=== PATIENT | male | born 1950 | race Caucasian/White ===

== ENCOUNTER → 2017-11-22 | Outpatient (CLI) | payer MEDICARE, OTHER ==
--- NOTE | 2017-11-22 10:50 | Diagnostic Imaging Report ---
Exam: Brain MRI without IV contrast History: Memory loss Comparison studies: None. Technique: Precontrast: Hi resolution Sag T1 with coronal and axial reformats. Axial DWI, T2, T2 flair, gradient echo or SWI Intravenous contrast: None. Findings: Structural lesions: No intra-or extra-axial masses. No hematomas. Atrophy: General: Symmetric and age appropriate. Focal: No disproportionate lobar, hippocampal, mesencephalic, pontine, or cerebellar atrophy. Lucas matter: Cortex: No signal abnormalities. No encephalomalacia. Basal ganglia: No atrophy or signal abnormalities. Thalami: No signal abnormalities. White matter signal intensity: A few scattered T2 FLAIR hyperintense signal changes in the supratentorial white matter are nonspecific but most compatible with chronic microvascular ischemic changes. There is mild T2 FLAIR hyperintense capping banding along the ventricular margins. Micro hemorrhages: None. Subarachnoid spaces: No signal abnormalities. Ventricles: Normal in size and configuration. No hydrocephalus. Other: Skull: No bone marrow abnormalities. Vessels: Expected flow voids present in the major arteries and dural sinuses.. Sella: Normal in size. No intra-or suprasellar abnormalities. Cranio-cervical junction: No abnormalities. Patent foramen magnum. No Chiari one malformation. Paranasal sinuses and mastoids: Mild nonspecific T2 hyperintense inflammatory mucosal thickening in the ethmoid air cells.. Cervical spine: No abnormalities. IMPRESSION: 1. Mild supratentorial chronic microvascular ischemic changes. 2. No additional intracranial abnormalities. 3. Normal brain volume for age. No disproportionate lobar or hippocampal atrophy. Signed by: Dr. Angel Gill M.D. on 11/22/2017 10:47 AM
== END ==
LOC: MRI 08:24
PROVIDERS: ATTEND Psychiatry & Neurology Neurology
DX: R41.3 Other amnesia (principal)
CPT/HCPCS: 70551

== ENCOUNTER 2020-08-03 06:25 | Observation (INO) | payer MEDICARE, OTHER ==
[2020-07-29 12:19] LABS: BASOPHILS # (AUTO) 0.1 (0.0-0.1); BASOPHILS % 0.9 % (0.0-1.0); EOSINOPHILS # (AUTO) 0.3 (0.0-0.4); EOSINOPHILS % 4.6 % (0.0-6.0); HEMATOCRIT 48.4 % (38.2-49.6); HEMOGLOBIN 16.2 g/dL (14.0-18.0); LYMPHOCYTES % 36.4 % (18.0-39.1); MEAN CORPUSCULAR HEMOGLOBIN 29.6 pg (28-32); MEAN CORPUSCULAR HGB CONC 33.5 g/dL (31-35); MEAN CORPUSCULAR VOLUME 88.3 fL (81-99); MONOCYTES # (AUTO) 0.3 (0.2-0.8); MONOCYTES % 5.9 % (4.4-11.3); NEUTROPHILS # (AUTO) 2.8 (2.1-6.9); NEUTROPHILS % 51.5 % (38.7-80.0); PLATELET COUNT 204 x10e3/uL (140-360); RED BLOOD COUNT 5.48 x10e6/uL (4.3-5.7); RED CELL DISTRIBUTION WIDTH 13.2 % (11.7-14.4)
[2020-07-29 12:36] LABS: ANION GAP 16.6 mmol/L (8-16); BLOOD UREA NITROGEN 18 mg/dL (7-26); BUN/CREATININE RATIO 20 (6-25); CARBON DIOXIDE 26 mmol/L (22-29); CHLORIDE 101 mmol/L (98-107); CREATININE, SERUM 0.92 mg/dL (0.72-1.25); EST GLOMERULAR FILTRATION RATE > 60 ML/MIN (60-); GLUCOSE 110 mg/dL (74-118); POTASSIUM 4.6 mmol/L (3.5-5.1); SODIUM 139 mmol/L (136-145)
[~2020-08-03] VITALS: Ht 182.9 cm; Wt 106.8 kg
[~2020-08-03 06:25] MED LIST: BUPROPION XL300 MG PO; BYSTOLIC10 MG PO; FLOMAX0.4 MG PO; FLUOXETINE HCL10 MG PO; INVOKANA100 MG PO; LOSARTAN POTAS100 MG PO; METFORMIN HCL850 MG PO; NAPROXEN250 MG PO; OMEPRAZOLE40 MG PO
[2020-08-03] MEDS ORDERED: VANCOMYCIN HCL 1,000 MG ONE (06:31)
[2020-08-03] MEDS ORDERED: SODIUM CHLORIDE 0.9% 500ML 500 ML ONE (06:32)
[2020-08-03] MEDS ORDERED: TRANEXAMIC ACID 1,000 MG/10 ML ML ONE (06:32)
[2020-08-03] MEDS ORDERED: CELECOXIB 200 MG CAP ONE (06:54)
[2020-08-03] MEDS ORDERED: DEXAMETHASONE SOD PHOS 10 MG/1 ML VIAL ONE (06:54)
[2020-08-03] MEDS ORDERED: CEFAZOLIN SOD 1 GM/NS 50ML 100 ML IV ONE (06:54)
[2020-08-03] MEDS ORDERED: GABAPENTIN 300 MG CAP ONE (06:55)
[2020-08-03] MEDS ORDERED: ROPIVACAINE 246.25 MG, EPINEPHRINE HCL 1:1000 1ML 0.5 MG, CLONIDINE HCL 0.08 MG, KETORO... INJ ONE ×5 (08:00)
[2020-08-03] MEDS ORDERED: KETOROLAC TROMETHAMINE 30 MG/ML VIAL IV PRN (09:30)
[2020-08-03] MEDS ORDERED: DIPHENHYDRAMINE HCL INJ 50 MG/ML VIAL IV PRN (09:30)
[2020-08-03] MEDS ORDERED: HYDROCODONE/APAP 5MG-325MG TAB PO PRN (09:30)
[2020-08-03] MEDS: SODIUM CHLORIDE 0.9% 1000ML 1,000 ML IV SCH ×2 (09:30→18:45)
[2020-08-03] MEDS ORDERED: DOCUSATE SODIUM 100 MG CAP PO PRN (09:30)
[2020-08-03] MEDS ORDERED: ONDANSETRON HCL INJ 2MG/ML 2ML 2 MG/ML VIAL IV PRN (09:30)
[2020-08-03] MEDS ORDERED: HYDROCODONE/APAP 7.5MG-325MG 1 EA TAB PO PRN (09:30)
[2020-08-03] MEDS ORDERED: ACETAMINOPHEN 650 MG SUPP PR PRN (09:30)
[2020-08-03 10:24] VITALS: BP 132/62
[2020-08-03 10:59] LABS: BASOPHILS # (AUTO) 0.1 (0.0-0.1); BASOPHILS % 0.6 % (0.0-1.0); EOSINOPHILS # (AUTO) 0.1 (0.0-0.4); HEMOGLOBIN 13.7 g/dL (14.0-18.0); LYMPHOCYTES % 12.5 % (18.0-39.1); MEAN CORPUSCULAR HEMOGLOBIN 29.6 pg (28-32); MEAN CORPUSCULAR HGB CONC 32.6 g/dL (31-35); MEAN CORPUSCULAR VOLUME 90.7 fL (81-99); MONOCYTES # (AUTO) 0.1 (0.2-0.8); NEUTROPHILS # (AUTO) 6.9 (2.1-6.9); NEUTROPHILS % 83.8 % (38.7-80.0); PLATELET COUNT 150 x10e3/uL (140-360); RED BLOOD COUNT 4.63 x10e6/uL (4.3-5.7); RED CELL DISTRIBUTION WIDTH 13.3 % (11.7-14.4)
[2020-08-03 11:00] VITALS: BP 114/60
[2020-08-03 11:16] LABS: ANION GAP 13.7 mmol/L (8-16); BLOOD UREA NITROGEN 19 mg/dL (7-26); BUN/CREATININE RATIO 20 (6-25); CALCIUM 8.4 mg/dL (8.4-10.2); CARBON DIOXIDE 22 mmol/L (22-29); CHLORIDE 106 mmol/L (98-107); CREATININE, SERUM 0.97 mg/dL (0.72-1.25); EST GLOMERULAR FILTRATION RATE > 60 ML/MIN (60-); GLUCOSE 190 mg/dL (74-118); POTASSIUM 4.7 mmol/L (3.5-5.1); SODIUM 137 mmol/L (136-145)
[2020-08-03] MEDS ORDERED: ACETAMINOPHEN 1000 MG/100 ML IV PRN (12:00)
[2020-08-03] MEDS ORDERED: LIDOCAINE HCL 2% LOCAL INJ 5 ML SDV VIAL INJ ONE (12:11)
[2020-08-03] MEDS ORDERED: ONDANSETRON HCL INJ 2MG/ML 2ML 2 MG/ML VIAL ONE (12:11)
[2020-08-03] MEDS ORDERED: PROPOFOL IV EMULSION 10 MG/ML 20 ML VIAL ONE (12:11)
[2020-08-03] MEDS ORDERED: EPHEDRINE SULFATE INJ 50 MG/ML VIAL ONE (12:11)
[2020-08-03] MEDS ORDERED: SEVOFLURANE INHAL SOLN 250 ML PEN BTL ONE (12:11)
[2020-08-03] MEDS ORDERED: BUPIVACAINE HCL 0.5% INJ 30 ML VIAL INJ ONE (12:21)
[2020-08-03] MEDS ORDERED: FENTANYL CITRATE/PF 100MCG/2 ML INJ ONE (13:15)
[2020-08-03] MEDS ORDERED: MIDAZOLAM HCL 2 MG/2 ML VIAL ONE (13:15)
[2020-08-03] MEDS: CEFAZOLIN SOD 1 GM/NS 50ML 50 ML IV SCH (15:40)
[2020-08-03 15:45] VITALS: BP 114/60
[2020-08-03 16:06] VITALS: BP 113/74
[2020-08-03] MEDS: CELECOXIB 100 MG CAP PO SCH (16:42)
[2020-08-03] MEDS: ASPIRIN 325 MG TAB PO SCH (16:42)
[2020-08-03 20:00] VITALS: BP 132/80
[2020-08-03] MEDS ORDERED: ZOLPIDEM TARTRATE 5 MG TAB PO PRN (21:00)
[2020-08-04] VITALS: BP 115/67
[2020-08-04] MEDS ORDERED: SODIUM CHLORIDE 0.9% 500ML 500 ML ONE (00:01)
[2020-08-04 04:00] VITALS: BP 134/77
[2020-08-04 05:33] LABS: HEMATOCRIT 38.4 % (38.2-49.6); HEMOGLOBIN 13.1 g/dL (14.0-18.0)
[2020-08-04 07:34] VITALS: BP 137/77
[2020-08-04 07:50] VITALS: BP 137/77
[2020-08-04] MEDS ORDERED: METFORMIN HCL 850 MG TAB PO SCH (08:15)
[2020-08-04] MEDS ORDERED: NEBIVOLOL 10 MG TAB PO SCH (09:00)
[2020-08-04] MEDS ORDERED: ONDANSETRON HCL 4 MG ORAL DISINTEGRATING TAB PO PRN (09:00)
[2020-08-04] MEDS ORDERED: PANTOPRAZOLE SOD 40 MG TABEC PO SCH (09:00)
[2020-08-04] MEDS ORDERED: LOSARTAN POTASSIUM 100 MG TAB PO SCH (09:00)
[2020-08-04] MEDS: CEFAZOLIN SOD 1 GM/NS 50ML 50 ML IV SCH ×2 (09:14)
[2020-08-04] MEDS: ASPIRIN 325 MG TAB PO SCH (09:14)
[2020-08-04] MEDS: CELECOXIB 100 MG CAP PO SCH (09:14)
[2020-08-04] MEDS ORDERED: CANAGLIFLOZIN 100 MG TABLET PO SCH (10:00)
[2020-08-04] MEDS ORDERED: FLUOXETINE HCL 10 MG CAP PO SCH (10:00)
[2020-08-04] MEDS ORDERED: BUPROPION HCL 150 MG TABCR PO SCH (10:00)
[2020-08-04] MEDS ORDERED: TAMSULOSIN HCL 0.4 MG CAP PO SCH (17:00)
== END 2020-08-04 11:24 | disposition home or self-care (01) ==
LOC: OR 06:25 → PACU V 09:19 → MED/SURG 10:27
PROVIDERS: ADMIT Specialist; ATTEND Specialist
DX: M17.0 Bilateral primary osteoarthritis of knee (principal); I10 Essential (primary) hypertension; E11.9 Type 2 diabetes mellitus without complications; Z01.818 Encounter for other preprocedural examination; Z20.828 Contact with and (suspected) exposure to other viral communicable diseases; N40.0 Benign prostatic hyperplasia without lower urinary tract symptoms; K21.9 Gastro-esophageal reflux disease without esophagitis; E78.5 Hyperlipidemia, unspecified; F32.9 Major depressive disorder, single episode, unspecified; F41.9 Anxiety disorder, unspecified
CPT/HCPCS: 27447; 36415 ×3; 64450; 71046; 73560; 80048 ×2; 82948 ×2; 85014; 85018; 85025 ×2; 86850; 86900; 86920; 93005; 97116 ×2; 97161; 97530; C1713; C1776 ×2; G0378 ×2; J0171; J0690 ×2; J1100; J1885; J2001; J2250; J2405; J2704; J2795; J3010; J3370; J7040 ×2; S0164; U0002

== ENCOUNTER 2020-09-24 13:47 | Outpatient (RCR) | payer MEDICARE, OTHER | END 2020-09-26 | LOC: PT 13:47 | PROVIDERS: ATTEND Physician Assistant | DX: Z96.651 Presence of right artificial knee joint (principal) ==

== ENCOUNTER → 2020-10-27 | Outpatient (RCR) | payer MEDICARE, OTHER | LOC: PT 09-29 15:58 | PROVIDERS: ATTEND Physician Assistant | DX: Z96.651 Presence of right artificial knee joint (principal) ==

== ENCOUNTER 2020-11-12 13:55 | Outpatient (RCR) | payer MEDICARE, OTHER | END 2020-11-26 | LOC: PT 13:55 | PROVIDERS: ATTEND Physician Assistant | DX: Z96.651 Presence of right artificial knee joint (principal); M25.561 Pain in right knee; M25.661 Stiffness of right knee, not elsewhere classified; M25.461 Effusion, right knee; M62.81 Muscle weakness (generalized); R26.9 Unspecified abnormalities of gait and mobility ==